=== PATIENT | male | born 1945 | race African-American/Black ===

== ENCOUNTER 2021-05-25 05:15 | Emergency (ER) | payer OTHER ==
[~2021-05-25] VITALS: Ht 180.3 cm; Wt 83.0 kg
[2021-05-25 05:24] VITALS: BP 140/75
--- NOTE | 2021-05-25 05:32 | NUR ---
Anjum siddiqui in [facility] - 05/25/21 at 0536 by [email or web address] PT AMBULATED TO BED 6
--- NOTE | 2021-05-25 05:34 | NUR ---
PT AMBULATED TO BED 5
--- NOTE | 2021-05-25 06:12 | NUR ---
PT ARRIVED WITH 16FR INDWELLING URINARY CATHETER WITH LEG BAG. VALVERDE REPLACED W/ 16FR AND 500CC OF URINE DRAINED. URINE POC DONE AND RESULTS GIVEN TO DR. MARIEE. PT TOLERATED PROCEDURE WELL.
[2021-05-25] MEDS ORDERED: CIPR500T4 PO (06:25)
[2021-05-25 06:50] VITALS: BP 135/78
== END 2021-05-25 06:54 | disposition home or self-care (01) ==
LOC: MED 05:15
DX: N39.0 Urinary tract infection, site not specified (principal); Z46.6 Encounter for fitting and adjustment of urinary device
CPT/HCPCS: 51702; 99283; 99284

== ENCOUNTER 2022-04-12 10:06 | Emergency (ER) | payer OTHER ==
[~2022-04-12] VITALS: Ht 180.3 cm; Wt 91.2 kg
[~2022-04-12 10:06] MED LIST: CIPR500T4 PO
[2022-04-12] MEDS ORDERED: LORazepam 2 MG/ML VIAL IVP ONE (10:15)
[2022-04-12] MEDS ORDERED: levETIRAcetam 1,000 MG in NACL 0.9% 100 ML IV ONE (10:15)
[2022-04-12] MEDS ORDERED: NACL 0.9% 1,000 ML IV ONE (10:15)
[2022-04-12 10:18] VITALS: BP 115/66
[2022-04-12 11:02] LABS: BASOPHILS % (AUTO) 0.5 % (0.0-2.0); EOSINOPHILS # (AUTO) 0.1 K/uL (0-0.4); EOSINOPHILS % (AUTO) 1.1 % (0.0-4.0); HEMATOCRIT 42.2 % (36-52); HEMOGLOBIN 14.1 g/dL (12.0-18.0); LYMPHOCYTES # (AUTO) 4.4 K/uL (2.0-11.5); LYMPHOCYTES % (AUTO) 47.4 % (20.5-51.1); MEAN CORPUSCULAR HEMOGLOBIN 31 pg (27-31); MEAN CORPUSCULAR HGB CONC 33 g/dL (33-37); MEAN CORPUSCULAR VOLUME 92.6 fL (80-94); MONOCYTES # (AUTO) 0.8 K/uL (0.8-1.0); MONOCYTES % (AUTO) 8.8 % (1.7-9.3); NEUTROPHILS # (AUTO) 3.9 K/uL (1.8-7.7); NEUTROPHILS % (AUTO) 42.2 % (42.2-75.2); PLATELET COUNT (AUTO) 242 K/uL (140-450); RED BLOOD CELL COUNT(AUTO) 4.56 MIL/uL (4.20-6.10); RED CELL DISTRIBUTION WIDTH 14.1 % (11.6-13.7); WHITE BLOOD COUNT (AUTO) 9.3 K/uL (4.8-10.8)
[2022-04-12 11:18] LABS: ALBUMIN 4.1 g/dL (3.4-5.0); ANION GAP 12.1 (8-16); ASPARTATE AMINOTRANSFERASE 20 U/L (15-37); CARBON DIOXIDE 28.1 mmol/L (21-32); CHLORIDE 102 mmol/L (98-107); CREATININE 1.7 mg/dL (0.6-1.3); GLUCOSE 90 mg/dL (74-106); POTASSIUM 4.2 mmol/L (3.5-5.1); SODIUM SERUM 138 mmol/L (136-145); TOTAL BILIRUBIN 1.3 mg/dL (0.0-1.0); UREA NITROGEN, BLOOD 18 mg/dL (7-18)
[2022-04-12 13:18] VITALS: BP 123/58
--- NOTE | 2022-04-12 13:18 | NUR ---
Patient discharged with v/s stable. Written and verbal after care instructions ABOUT SEIZURE given and explained. Patient verbalized understanding. Ambulatory with steady gait. All questions addressed prior to discharge. Advised to follow up with PMD.
== END 2022-04-12 13:18 | disposition home or self-care (01) ==
LOC: MED 10:06
DX: G40.909 Epilepsy, unspecified, not intractable, without status epilepticus (principal)
CPT/HCPCS: 36415; 70450; 71045; 80053; 85025; 93005; 96361; 96365; 96375; 99291; J1953; J2060; J7030